=== PATIENT | male | born 1985 | race Caucasian/White ===

== ENCOUNTER 2020-03-30 07:01 | Emergency (ER) | payer OTHER ==
[~2020-03-30] VITALS: Ht 165.1 cm; Wt 98.9 kg
[~2020-03-30 07:01] MED LIST: CIPROFLOXACIN500 M1 PO; NOHOMEMEDICATIONS
[2020-03-30] MEDS ORDERED: HYDROXYZINE HCL25 M2 PO (07:22)
[2020-03-30] MEDS ORDERED: CELEXA20 MG PO (07:22)
[2020-03-30] MEDS ORDERED: BUPROPION HCL100 MG PO (07:23)
[2020-03-30] MEDS ORDERED: ADDERALL XR 1515 MG PO (07:23)
[2020-03-30 08:10] LABS: INFLUENZA A ANTIGEN Negative (Negative); INFLUENZA B ANTIGEN Negative (Negative)
[2020-03-30] MEDS ORDERED: DOXYCYCLINE 10100 MG PO (08:19)
[2020-03-30 08:56] VITALS: BP 128/70
[2020-03-31] MEDS ORDERED: BUSPIRONE HCL10 MG PO (10:27)
[2020-03-31] MEDS ORDERED: HYDROXYZINE PAM25 M1 PO (10:28)
== END 2020-03-30 08:56 | disposition home or self-care (01) ==
LOC: M.ERS 07:01
PROVIDERS: Emergency Medicine
DX: J18.9 Pneumonia, unspecified organism (principal); Z20.828 Contact with and (suspected) exposure to other viral communicable diseases

== ENCOUNTER 2020-03-31 06:42 | Inpatient (IN) | payer OTHER ==
[~2020-03-31] VITALS: Ht 165.1 cm; Wt 96.6 kg
[~2020-03-31 06:42] MED LIST changes: +ADDERALL XR 1515 MG PO; +BUPROPION HCL100 MG PO; +CELEXA20 MG PO; +DOXYCYCLINE 10100 MG PO; +HYDROXYZINE HCL25 M2 PO
[2020-03-31 07:03] VITALS: BP 125/78
[2020-03-31 07:40] LABS: HEMATOCRIT 38.2 % (42.0-52.0); MCH 30.3 pg (26.0-34.0); MCHC 34.1 g/dL (28.0-37.0); MCV 88.9 fL (80.0-100.0); MPV 7.6 fl. (7.2-11.1); NUCLEATED RBCS 0 /100WBC; PLATELET COUNT* 248 thou/uL (150-400); RBC 4.29 mil/uL (4.50-6.00); RDW-CV 12.5 % (10.5-14.5); WBC 12.2 thou/uL (4.0-11.0)
[2020-03-31 07:52] LABS: CALCIUM 8.6 mg/dL (8.5-10.1); CREATININE 1.1 mg/dL (0.6-1.3)
[2020-03-31 07:53] LABS: INR 1.2; PROTIME 11.8 Seconds (9.20-11.50)
[2020-03-31 08:03] LABS: ALBUMIN 3.3 g/dL (3.4-5.0); TOTAL BILIRUBIN 1.3 mg/dL (<0.1-1.0); TOTAL PROTEIN 8.3 g/dL (6.4-8.2)
[2020-03-31 08:31] LABS: ABSOLUTE LYMPHOCYTES 0.7 thou/uL (0.8-5.3); ABSOLUTE NEUTROPHILS 11.5 thou/uL (1.6-8.1); PLATELET ESTIMATE ADEQUATE
--- NOTE | 2020-03-31 09:30 | EKG ---
[place] [address] ELECTROCARDIOGRAM REPORT Name: AXELJAY LOPEZ Room: [place] [address] ADM IN [facility]#: [id number] Admission: 03/31/20 Attend Phys: Carlos Peñaloza Discharge: Date of : 85 Date of Service: 03/31/20 0748 Report #: [id number] THIS REPORT FOR: //name// [facility] ED Test Date: 2020-03-31 Test Time: 07:48:52 Pat Name: JAY REYNA Department: Room: [facility] Gender: M Bulk Filler: : 1985 Requested By: Bernard Gautam Order Number: [id number] MD: Kostas Castaneda Measurements Intervals [place] Rate: 94 P: 56 NE: 132 QRS: 29 QRSD: 99 T: 24 QT: 336 QTc: 421 Interpretive Statements Sinus rhythm Probable left atrial enlargement ST elev, probable normal early repol pattern Baseline wander in lead(s) V1 No previous ECG available for comparison Electronically Signed On 03-31-2020 9:29:16 CDT by Kostas Castaneda [email or web address] <ELECTRONICALLY SIGNED> By: Kostas Castaneda MD, [facility] 03/31/20 0929 0748 0748 Kostas Castaneda MD, [facility] /EPI
[2020-03-31 09:35] VITALS: BP 118/72
[2020-03-31 09:45] VITALS: BP 123/75
[2020-03-31] MEDS ORDERED: BUSPIRONE HCL10 MG PO (10:27)
[2020-03-31] MEDS ORDERED: HYDROXYZINE PAM25 M1 PO (10:28)
[2020-03-31 12:31] LABS: URINE BILIRUBIN NEGATIVE (Negative); URINE BLOOD NEGATIVE (Negative); URINE CLARITY CLEAR; URINE COLOR YELLOW; URINE GLUCOSE-RANDOM NEGATIVE (Negative); URINE KETONES 1+ (Negative); URINE LEUKOCYTES-REFLEX NEGATIVE (Negative); URINE NITRITE-REFLEX NEGATIVE (Negative); URINE PROTEIN 1+ (Negative); URINE SPECIFIC GRAVITY >= 1.030 (1.005-1.030); URINE UROBILINOGEN 0.2 E.U./dl (0.2-1.0)
--- NOTE | 2020-03-31 13:42 | NUR ---
Pt lives at home with parents' support. SW to continue to follow to assist with safe dc planning.
[2020-03-31 15:17] VITALS: BP 124/61
--- NOTE | 2020-03-31 19:00 | NUR ---
RESUMED CARE OF PATIENT AT 1545. REPORT REC'D. PATIENT STATES HAVING N/V X1 THIS AFTERNOON, STATES FEELING BETTER SINCE HAVING LOOSE BM AFTER N/V EPISODE. PATIENT PLEASANT AND COOPERATIVE, DENIES NURSING NEEDS AT THIS TIME. RESTING IN BED. LABS DRAWN, DEL TO LAB FOR PROCESSING. CALL LIGHT IN REACH. ISO PREC MAINTAINED. ~TJRN
[2020-03-31 20:24] VITALS: BP 116/73
--- NOTE | 2020-04-01 04:34 | NUR ---
ASSUMED CARE OF PT 03/31/20 AT APPROX 1930. PT A&OX4, ON ROOM AIR, VSS, IV FLUIDS INFUSINGS ORDERED. WILL CONTINUE TO MONITOR.
[2020-04-01 08:10] VITALS: BP 150/79
[2020-04-01 14:37] VITALS: BP 150/79
[2020-04-01] MEDS ORDERED: ASA81BEC PO (14:47)
[2020-04-01] MEDS ORDERED: VITAMIN C500 M2 PO (14:48)
[2020-04-01 15:29] VITALS: BP 150/79
--- NOTE | 2020-04-01 15:30 | NUR ---
PT GIVEN PRESCRIPTIONS, CARE NOTES AND HOME MEDS. WENT OVER DISCHARGE INFORMATION. IV REMOVED. PT BELONGINGS GATHERED. PT LEFT VIA WHEELCHAIR WITH NURISNG STAFF TO HOME.
== END 2020-04-01 15:40 | disposition home or self-care (01) | DRG 194 ==
LOC: M.ERS 06:42 → M.TBA-ER 08:58 → M.ORTHSURG 08:58
PROVIDERS: Emergency Medicine; ADMIT Internal Medicine
DX: J18.9 Pneumonia, unspecified organism (principal); R65.10 Systemic inflammatory response syndrome (SIRS) of non-infectious origin without acute organ dysfunction; F32.9 Major depressive disorder, single episode, unspecified; F41.9 Anxiety disorder, unspecified; F90.9 Attention-deficit hyperactivity disorder, unspecified type; P74.1 Dehydration of newborn; Z20.828 Contact with and (suspected) exposure to other viral communicable diseases; Z79.899 Other long term (current) drug therapy